=== PATIENT | female | born 1945 | race Hispanic/Latino ===

== ENCOUNTER 2019-09-01 00:40 | Emergency (ER) | payer MEDICARE ==
[2019-09-01 02:01] LABS: Basophils # (Auto) 0.1 K/mm3 (0.0-0.1); Basophils % (Auto) 0.4 % (0.0-1.8); Eosinophils % (Auto) 0.1 % (0.0-4.3); Hematocrit 38.8 % (30.3-42.9); Hemoglobin 12.6 gm/dl (10.1-14.3); Lymphocytes # (Auto) 3.3 K/mm3 (1.2-5.4); Lymphocytes % (Auto) 22.4 % (13.4-35.0); Mean Corpuscular HGB Conc 32 % (30-34); Mean Corpuscular Volume 91 fl (79-97); Monocytes % (Auto) 7.1 % (0.0-7.3); Platelet Count 471 K/mm3 (140-440); Red Blood Count 4.25 M/mm3 (3.65-5.03); Red Cell Distribution Width 15.5 % (13.2-15.2)
[2019-09-01] MEDS ORDERED: KETOROLAC 30 MG/1 ML INJ IM ONE (02:01)
--- NOTE | 2019-09-01 02:06 | Emergency Department Report ---
ED Fall HPI - General Chief Complaint: Fall Stated Complaint: FALL RT EYE BRUISED CHEST INJURY Time Seen by Provider: 09/01/19 01:56 Source: patient Mode of arrival: Ambulatory - History of Present Illness Initial Comments: Mrs. Palmer is a healthy 74-year-old female with history of anxiety and hypertension who presents status post fall on night. She fell while attempting to get out of a truck. She fell in the carport of her home. She struck a pole. Her knee struck the pavement. She has blackeye on the right. She has bilateral knee bruising with swelling greater than the right. She requests a shot of Toradol. No LOC. No amnesia. PCP Dr. Obrien in [facility]. Complaint: fall -: days(s) ( one day ago ) Fall From: other (while getting out of a truck) Fall Witnessed: yes, by bystander (her friend was driving the truck, he assisted her out of the truck) Place Fall Occurred: home Loss of Consciousness: none Prolonged Down Time?: no Symptoms Prior to Fall: none Location: head, other (bilateral knee) Location - Extremities: Left: Knee, Right: Knee Severity: moderate Quality: aching Context: tripped/slipped Associated Symptoms: denies - Related Data Home Medications Medication Instructions Recorded Confirmed Last Taken Estradiol [Estrace] 0 mg PO QDAY 04/12/15 04/12/15 03/11/15 Estrogen-Methyltestos H.s. Tab 04/12/15 04/12/15 Unknown Estrogens, Conjugated (Nf) 0.625 mg PO QDAY 04/12/15 04/12/15 04/11/15 [Premarin] Lisinopril [Zestril] 40 mg PO QDAY 04/12/15 04/12/15 04/11/15 Previous Rx's Medication Instructions Recorded Last Taken Type Ibuprofen [Motrin 400 MG tab] 400 mg PO TID PRN #15 tablet 09/01/19 Unknown Rx Allergies Allergy/AdvReac Type Severity Reaction Status Date / Time Sulfa (Sulfonamide Allergy Swelling Verified 04/12/15 16:34 Antibiotics) ED Review of Systems ROS: Stated complaint: FALL RT EYE BRUISED CHEST INJURY Other details as noted in HPI Comment: All other systems reviewed and negative Constitutional: denies: fever, malaise Respiratory: denies: cough Cardiovascular: denies: chest pain Musculoskeletal: joint swelling ED Past Medical Hx - Past Medical History Previous Medical History?: Yes Hx Hypertension: Yes Hx Arthritis: Yes Hx Kidney Stones: Yes Hx Psychiatric Treatment: Yes (anxiety) Additional medical history: fibromyalgia, Bleeding Ulcer - Surgical History Past Surgical History?: Yes Hx Cholecystectomy: Yes Additional Surgical History: hysterctomy - Social History Smoking Status: Never Smoker Substance Use Type: Alcohol (occasional) - Medications Home Medications: Home Medications Medication Instructions Recorded Confirmed Last Taken Type Estradiol [Estrace] 0 mg PO QDAY 04/12/15 04/12/15 03/11/15 History Estrogen-Methyltestos H.s. Tab 04/12/15 04/12/15 Unknown History Estrogens, Conjugated (Nf) 0.625 mg PO QDAY 04/12/15 04/12/15 04/11/15 History [Premarin] Lisinopril [Zestril] 40 mg PO QDAY 04/12/15 04/12/15 04/11/15 History Ibuprofen [Motrin 400 MG tab] 400 mg PO TID PRN #15 tablet 09/01/19 Unknown Rx ED Physical Exam - General Limitations: No Limitations General appearance: alert, in no apparent distress - Head Head exam: Present: normocephalic, other (ecchymoses involving the right upper lid without step off or swelling normal globe) - Eye Eye exam: Present: normal appearance. Absent: scleral icterus, conjunctival injection, nystagmus - ENT ENT exam: Present: mucous membranes moist - Neck Neck exam: Present: normal inspection, full ROM - Respiratory Respiratory exam: Present: normal lung sounds bilaterally. Absent: respiratory distress, wheezes, rales, rhonchi, stridor - Cardiovascular Cardiovascular Exam: Present: regular rate, normal rhythm, normal heart sounds. Absent: systolic murmur, diastolic murmur, rubs, gallop - GI/Abdominal GI/Abdominal exam: Present: soft, normal bowel sounds. Absent: distended, tenderness, guarding, rebound - Extremities Exam Extremities exam: Present: other (right knee: Large amount of bruising and prepatellar swelling full range of motion without laxity or tenderness left knee: Faint bruising no swelling no deformity no laxity. Full Range of motion) - Back Exam Back exam: Present: normal inspection - Neurological Exam Neurological exam: Present: alert, oriented X3, normal gait - Psychiatric Psychiatric exam: Present: normal affect, normal mood - Skin Skin exam: Present: warm, dry, intact, normal color. Absent: rash ED Course Vital Signs 09/01/19 09/01/19 01:02 01:04 Temperature 97.6 F Pulse Rate 95 H Respiratory 18 Rate Blood Pressure 125/70 O2 Sat by Pulse 97 Oximetry ED Medical Decision Making - Lab Data Result diagrams: 09/01/19 01:28 09/01/19 01:28 Laboratory Results - last 24 hr 09/01/19 01:28 WBC 14.5 H RBC 4.25 Hgb 12.6 Hct 38.8 MCV 91 MCH 30 MCHC 32 RDW 15.5 H Plt Count 471 H Lymph % (Auto) 22.4 Roberts % (Auto) 7.1 Eos % (Auto) 0.1 Baso % (Auto) 0.4 Lymph # 3.3 Roberts # 1.0 H Eos # 0.0 Baso # 0.1 Seg Neutrophils % 70.0 Seg Neutrophils # 10.2 H - EKG Data 09/01/19 02:04 EKG obtained at 0118 Normal sinus rhythm rate 90 beats a minute normal axis normal intervals no ST elevation nonspecific T wave pattern no significant Q waves - Radiology Data Radiology results: report reviewed Bilateral knee radiographs according to radiology report no fracture or s ubluxation moderate tricompartmental degenerative changes CT head no intracranial process no acute injury noted findings - Medical Decision Making Mrs. Palmer is a 74-year-old female who looks much stated age. She presents with bilateral knee pain right knee bruising right facial bruising. No evidence of severe injury. No fracture or subluxation seen on x-rays. CT head without acute findings. CBC notable for leukocytosis. No reported fever or infectious symptoms. EKG was obtained per triage protocol. I do not suspect acute coronary syndrome or arrhythmia. No reported syncope. Mrs. Palmer was able to describe all events leading up to the fall. She was able to describe the events after the fall. Prescribed ibuprofen. I reviewed the [place] prescription drug monitoring program database. Mrs. Palmer has had 33 prescriptions from 10 prescribers providers for opioid and benzodiazepine medications. I am concerned for opioid dependence. I'm also concerned for benzodiazepine dependence. In June she received a prescription for 60 tablets of tramadol. In May she also received 30 tablets of Benge 7.5. Concerned that polypharmacy contributed to her fall. Critical care attestation.: If time is entered above; I have spent that time in minutes in the direct care of this critically ill patient, excluding procedure time. ED Disposition Clinical Impression: Fall, Closed head injury, Contusion of knee, right, Contusion of left knee Disposition: - TO HOME OR SELFCARE Is pt being admited?: No Does the pt Need Aspirin: No Condition: Stable Instructions: Black Eye (ED), Minor Head Injury (ED), Pulmonary Contusion (ED) Prescriptions: Ibuprofen [Motrin 400 MG tab] 400 mg PO TID PRN #15 tablet PRN Reason: Pain , Severe (7-10) Referrals: PRIMARY CARE,MD [Primary Care Provider] - 3-5 Days
[2019-09-01 02:33] LABS: Alanine Aminotransferase 19 units/L (7-56); Albumin 4.6 g/dL (3.9-5); BUN/Creatinine Ratio 27; Blood Urea Nitrogen 19 mg/dL (7-17); Calcium 10.2 mg/dL (8.4-10.2); Hemolysis Index 13
--- NOTE | 2019-09-01 02:38 | XRay Report ---
BILATERAL KNEES 6 VIEWS INDICATION / CLINICAL INFORMATION: fall knee bruising swelling COMPARISON: None available. FINDINGS: BONES / JOINT(S): No acute fracture or subluxation. Moderate tricompartmental degenerative changes. S OFT TISSUES: No significant abnormality. ADDITIONAL FINDINGS: None. Signer Name: Carlyle Lopez MD Signed: 09/01/2019 2:34 AM Workstation Name: [email or web address]
[2019-09-01] MEDS ORDERED: HYDROcodone/ACETAMINOPHEN 5-325 MG TAB PO ONE (03:27)
--- NOTE | 2019-09-01 03:28 | Cat Scan Report ---
CT head without contrast INDICATION : Headache following fall. TECHNIQUE: Axial imaging performed from the skull apex through the skull base without the use of con trast. All CT examinations performed at this facility utilize dose modulation, iterative reconstruct ion or weight-based dosing, when appropriate, to reduce radiation dose to as low as reasonably achiev able. COMPARISON: None FINDINGS: No acute intracranial hemorrhage or parenchymal abnormality. Ventricles are normal in si ze and appear symmetric. Soft tissues including the orbits appear normal. No acute osseous abnorm ality. Sinuses and mastoid air cells are clear. IMPRESSION: No acute abnormality. Signer Name: Carlyle Lopez MD Signed: 09/01/2019 3:23 AM Workstation Name: [id number]
[2019-09-01 03:58] VITALS: BP 127/84
== END 2019-09-01 03:57 | disposition home or self-care (01) ==
LOC: ED 00:40
DX: S80.02XA Contusion of left knee, initial encounter (principal); S80.01XA Contusion of right knee, initial encounter; S09.90XA Unspecified injury of head, initial encounter; I10 Essential (primary) hypertension; M19.90 Unspecified osteoarthritis, unspecified site; F41.9 Anxiety disorder, unspecified; Z90.710 Acquired absence of both cervix and uterus; Z90.49 Acquired absence of other specified parts of digestive tract; Z88.2 Allergy status to sulfonamides; Z79.899 Other long term (current) drug therapy; X58.XXXA Exposure to other specified factors, initial encounter; Y93.89 Activity, other specified; Y92.89 Other specified places as the place of occurrence of the external cause; Y99.8 Other external cause status
CPT/HCPCS: 36415; 70450; 73562; 80053; 85025; 93005; 93010; 96372; 99284; J1885

== ENCOUNTER 2019-09-01 19:06 | Emergency (ER) | payer MEDICARE ==
[2019-09-01 19:19] VITALS: BP 137/75
--- NOTE | 2019-09-01 19:54 | Event Note ---
ED Screening Note Date of service: 09/01/19 Time: 19:52 ED Screening Note: 74 y o f returns to ED after being seen yesterday cc of worsening pain s/p fall pt states she was given motrin but unable to take motrin and tylenol Pt is insisting to be evaluated stating she is in a lot of pain This initial assessment/diagnostic orders/clinical plan/treatment(s) is/are subject to change based on patients health status, clinical progression and re- assessment by fellow clinical providers in the ED. Further treatment and workup at subsequent clinical providers discretion. Patient/guardian urged not to elope from the ED as their condition may be serious if not clinically assessed and managed. Initial orders include: acc eval
== END 2019-09-01 21:35 | disposition left against medical advice (07) ==
LOC: ED 19:06
DX: M25.562 Pain in left knee (principal); Z53.21 Procedure and treatment not carried out due to patient leaving prior to being seen by health care provider